=== PATIENT | female | born 1945 | race Caucasian/White ===

== ENCOUNTER 2022-09-24 12:20 | Outpatient (CLI) | payer MEDICARE | END 2022-09-24 12:21 | disposition home or self-care (01) | LOC: CSHLAB 12:20 | PROVIDERS: ATTEND Internal Medicine Cardiovascular Disease | DX: Z01.818 Encounter for other preprocedural examination (principal); R93.1 Abnormal findings on diagnostic imaging of heart and coronary circulation | CPT/HCPCS: 71046; 93005; 93010 ==